=== PATIENT | male | born 1995 | race Hispanic/Latino ===

== ENCOUNTER 2019-12-29 12:38 | Emergency (ER) | payer BC, SELFPAY ==
[2019-12-29] MEDS ORDERED: Acetaminophen 500 MG TAB ONE (13:13)
--- NOTE | 2019-12-29 13:30 | RAD ---
Chest one view HISTORY: Cough and fever. FINDINGS: Cardiac silhouette is magnified by projection. Pulmonary vasculature is unremarkable. Media stinum is midline. No lobar consolidation or evidence of pneumothorax. IMPRESSION: Normal exam.
== END 2019-12-29 14:27 | disposition home or self-care (01) ==
LOC: ERS 12:38
DX: J11.1 Influenza due to unidentified influenza virus with other respiratory manifestations (principal); R11.0 Nausea; F41.9 Anxiety disorder, unspecified
CPT/HCPCS: 71045; 87081; 87430; 87804

== ENCOUNTER 2020-05-05 19:32 | Emergency (ER) | payer SELFPAY ==
[2020-05-05] MEDS ORDERED: Lidocaine 1% w/Epinephrine 1:100K 20 ML VIAL ONE (20:50)
== END 2020-05-05 21:17 | disposition home or self-care (01) ==
LOC: ERS 19:32
DX: L02.413 Cutaneous abscess of right upper limb (principal); F41.9 Anxiety disorder, unspecified
CPT/HCPCS: 10060; 87070; 87077; 87186; 87205

== ENCOUNTER 2020-09-17 20:37 | Inpatient (IN) | payer SELFPAY ==
[~2020-09-17 20:37] MED LIST: Iopamidol-370 76% 500 ML 1 ML ONE
--- NOTE | 2020-09-17 21:17 | RAD ---
SINGLE VIEW OF THE CHEST: 09/17/20 COMPARISON: 12/29/19 HISTORY: Subjective fever with chest pain. FINDINGS: Single view of the chest shows a normal sized cardiomediastinal silhouette. There is no evidence of c onsolidation, mass, or pleural effusion. The bones are unremarkable. IMPRESSION: No evidence of acute cardiopulmonary disease. POS: EAA
[2020-09-17] MEDS ORDERED: Midazolam HCl 2 mg/2 ml Vial ONE (21:21)
[2020-09-17] MEDS ORDERED: Piperacillin/Tazobactam 3.375 GM VIAL ONE (21:23)
[2020-09-17] MEDS ORDERED: Morphine 4 MG/ML VIAL ONE (21:23)
[2020-09-17 21:39] LABS: Hemoglobin 15.4 g/dL (14.0-18.0); Mean Corpuscular HGB CONC 32.7 g/dL (32.0-36.0); Mean Corpuscular Hemoglobin 29.8 pg (27.0-31.0); Mean Corpuscular Volume 91.1 fL (78.0-98.0); Platelet Count 310 thou/uL (130-400); RBC Distribution Width 11.5 % (11.5-14.5); Red Blood Cell (RBC) Count 5.18 mill/uL (4.70-6.10); White Blood Cell (WBC) Count 18.4 thou/uL (4.8-10.8)
[2020-09-17 21:58] LABS: Band 41 % (5-11); Lymphocytes 3 % (21-51); MDiff Complete? YES; Monocytes 2 % (0-10); Neutrophil 54 % (42-75); Reflex for Review?? YES
[2020-09-17 22:00] LABS: ALT (SGPT) 13 U/L (8-55); AST (SGOT) 10 U/L (5-34); Albumin 4.8 g/dL (3.5-5.0); Alkaline Phosphatase 73 U/L (40-110); Anion Gap 19 mmol/L (10-20); BUN (Urea Nitrogen) 25 mg/dL (8.9-20.6); Calc. Creatinine Clearance 0 mL/min (70-130); Calcium 10.6 mg/dL (7.8-10.44); Carbon Dioxide 24 mmol/L (22-29); Chloride 92 mmol/L (98-107); Globulin 3.6 g/dL (2.4-3.5); Glucose 172 mg/dL (70-105); Lipase Less than 4 U/L (8-78); Protein, Total 8.4 g/dL (6.0-8.3); Sodium 130 mmol/L (136-145)
[2020-09-17] MEDS ORDERED: Vancomycin 1 GM/200 ML BAG ONE (22:19)
[2020-09-17] MEDS ORDERED: Benzocaine 20% Spray 60 ML CAN ONE (23:44)
[2020-09-17] MEDS ORDERED: HYDROmorphone 0.5 MG/0.5 ML SYRINGE ONE (23:44)
[2020-09-18] MEDS ORDERED: Fentanyl 250 MCG/5 ML VIAL ONE (01:09)
[2020-09-18 01:16] LABS: Lactic Acid 2.3 mmol/L (0.5-2.2)
[2020-09-18] MEDS ORDERED: Bupivacaine 0.25% HCL 30 ML VIAL ONE (01:31)
[2020-09-18] MEDS ORDERED: EPINEPHrine 1 MG/ML AMP ONE (01:31)
--- NOTE | 2020-09-18 02:17 | HP ---
CHIEF COMPLAINT: Abdominal pain. HISTORY OF PRESENT ILLNESS: Mr. Sherman is a 25-year-old previously healthy young man, who presented to the emergency room with a 2-day history of abdominal pain. He states that the pain starts in his lower abdomen, a little worse on the left than the right, but slowly became more severe. At first, it was intermittent and crampy and now it is constant and involves his entire abdomen and even radiates up into his chest. On his presentation to the emergency room, he was extremely tachycardic and in acute distress and the emergency room doctor was concerned about aortic dissection. He did an aortic CT protocol which did not show any dissection, but did show multiple dilated loops of small intestine with a few foci of gas outside of the lumen of the dilated small intestine. The patient had an NG tube placed and was sent back to the CT scanner for a CT of the abdomen and pelvis as the lower part of the abdominal cavity was not included in the aortic dissection protocol. When I saw the patient, he had not yet had the NG placed to suction and I did so with immediate return of almost 1 L of bilious fluid. He stated that he had been drinking fluids, but had not really been eating for the past 2 days because when he is sick, he loses his appetite. He states that he has not had any nausea, vomiting, diarrhea, or constipation and has been having normal bowel movements throughout his illness. He has no significant past medical history. He recently came to the emergency room for an infected bite on his right arm and was treated for abscess and cellulitis. He has no history of GI issues. PAST SURGICAL HISTORY: None. SOCIAL HISTORY: The patient does not smoke, drink, or use illicit drugs. FAMILY HISTORY: Heart disease in his father, who had multiple MIs and of an MO. There is also family history of hypertension. ALLERGIES: HE HAS ADVERSE DRUG REACTIONS TO REGLAN AND SULFA. MEDICATIONS: Does not take any medications on a regular basis. He has received Zosyn and vancomycin in the emergency room. REVIEW OF SYSTEMS: 10-system review of systems is negative except per HPI. PHYSICAL EXAMINATION: VITAL SIGNS: The patient was still tachycardic when I saw him after 2 L of fluid with heart rate into the 120s. Respiratory rate was elevated earlier and was normal when I saw him. He was saturating 100% on room air and blood pressure was normal at 137/90. GENERAL: Reveals an ill-appearing young man, in no acute distress. He is slightly flushed, not toxic or diaphoretic in appearance. He is not jaundiced or icteric. He is normocephalic, atraumatic. Pupils are equal. Extraocular movements and facial movements are symmetric. HEENT: Unremarkable. NECK: Supple without lymphadenopathy or thyroid nodules. HEART: Tachycardic, but regular without murmurs, rubs, or gallops. LUNGS: Clear to auscultation bilaterally. ABDOMEN: Soft, slightly distended. No audible bowel sounds. Very tender to palpation in the lower abdomen and mildly tender to palpation in the upper abdomen with guarding in the lower abdomen. No palpable masses or hernias. EXTREMITIES: Warm and well perfused without edema. NEUROLOGIC: No focal deficits. PSYCHIATRIC: Alert, oriented, and appropriate with normal affect. There is no written report from the CT aortic protocol, but the ER physician pointed out the areas that the radiologist noted, which were concerning for free air. He did have multiple distended loops of small bowel, but I could not see a transition point and his cecum was also very distended with gas, but there was no obstruction in the transverse colon. I could not identify an appendix and the sigmoid colon was mostly excluded from the CT scan. The patient does have a written report for his CT of the abdomen and pelvis. They noted that the appendix was dilated up to 1.6 cm with an appendicolith, surrounding fat stranded and multiple dilated loops of small bowel, which was felt to be reactive or possibly due to obstruction related to the appendicitis. They noted ascites, but did not note free air. However, this scan was done without IV contrast. ASSESSMENT AND PLAN: Possible perforated appendicitis, possible bowel obstruction, and possible perforation related to the above. Hopefully, the foci of gas in the abdomen noted on the initial CT are from the appendix, but the patient definitely has peritonitis and either severe ileus or a possible bowel obstruction. The radiologist specifically commented that there was no evidence of diverticulitis or colitis in the sigmoid colon, although again the CT was done without contrast. I will plan on taking the patient to the operating room for a laparoscopic appendectomy, washout, and carefully examine the intestine for any evidence of secondary perforation or damage. If any nonviable or perforated segments of bowel are identified, he may require resection and even ostomy depending on the location. However, hopefully this is just perforated appendicitis with peritonitis and severe ileus. The patient's diagnosis and recommended treatment were discussed with him and his family member. Inherent risks of surgery were discussed. These include, but are not limited to, bleeding, infection, risks of anesthesia, anastomotic leak, need for open surgery, need for other procedures. He understands and accepts these risks and wishes to proceed. Job ID: [id number]
[2020-09-18 02:20] LABS: SARS-CoV-2 NAA Rapid Test Not Detected (NotDetected)
[2020-09-18] MEDS ORDERED: Piperacillin/Tazobactam 3.375 GM VIAL ONE (02:20)
[2020-09-18] MEDS ORDERED: Sodium Chloride 0.9% 100 ML ONE (02:22)
[2020-09-18] MEDS ORDERED: Morphine Sulfate 2 MG/ML SYRINGE SLOW IVP PRN (04:02)
[2020-09-18] MEDS ORDERED: Promethazine HCl 25 MG/ML VIAL SLOW IVP PRN (04:02)
[2020-09-18] MEDS ORDERED: HYDROmorphone 2 MG/ML VIAL SLOW IVP PRN (04:02)
[2020-09-18] MEDS ORDERED: Ondansetron HCl/PF 4 MG/2 ML Vial IVP PRN (04:02)
[2020-09-18] MEDS ORDERED: Meperidine HCl/PF 25 MG/ML VIAL SLOW IVP PRN (04:02)
[2020-09-18] MEDS ORDERED: Promethazine HCl 25 MG/ML VIAL IM PRN ×2 (04:02→04:58)
[2020-09-18] MEDS ORDERED: Acetaminophen 325 MG TAB PO PRN ×2 (04:55)
[2020-09-18] MEDS ORDERED: Dextrose 50% Abboject 50 ML SYRINGE SLOW IVP PRN (04:58)
[2020-09-18] MEDS ORDERED: Dextrose 5% in Water 1,000 ML IV PRN (04:58)
[2020-09-18] MEDS ORDERED: Acetaminophen 650 MG Suppository PR PRN (04:58)
[2020-09-18] MEDS ORDERED: hydrALAZINE 20 MG/ML VIAL SLOW IVP PRN (04:58)
[2020-09-18 06:27] VITALS: BMI 18.7
--- NOTE | 2020-09-18 07:57 | CT ---
CTA OF THE CHEST AND ABDOMEN WITH CONTRAST: HISTORY: Chest and abdominal pain for 2 days. Subjective fever. TECHNIQUE: Multiple continuous axial images were obtained in a CTA of the chest and abdomen with contrast per rtic dissection protocol. Three-D sagittal and coronal MIP reformats were performed. FINDINGS: No focal infiltrates or masses are seen in the lungs. No pneumothorax or pleural effusion are seen. The heart is normal in size. No hilar or mediastinal lymphadenopathy are seen. The esophagus is flu id-filled distally. The liver, gallbladder, kidneys, adrenal glands, spleen, and pancreas are unremarkable. The colon is filled with stool. There is diffuse enlargement of the small bowel loops measuring up t o 3.7 cm in size. There are a few bubbles of air scattered throughout the abdomen that cannot be dolly roney within the lumen of bowel and this is concerning for free air in the abdomen. There is a small a mount of free fluid also scattered throughout the abdomen. The stomach is enlarged. No obvious quiroga sition point is seen, but the pelvis is excluded on this examination. No abdominal or pelvic lymphadenopathy are seen. The aorta is normal in caliber. Subclavian arteries and common carotid arteries are normal in appear ance. There is no evidence of dissection or aneurysmal dilatation of the aorta. The celiac trunk, S MA, and NICKIE are patent. The bilateral renal arteries are patent without significant atherosclerotic disease. The abdominal wall soft tissues are unremarkable. There are bilateral L5 pars defects. IMPRESSION: 1. No significant aortic abnormality. 2. Diffuse enlargement of the small bowel loops with possible perforation of bowel given likely bubb les of free air in the abdomen. The cause for this diffuse enlargement of the small bowel loops is u ncertain and no obvious transition point is seen. This could be secondary to small bowel obstruction . POS: EAA
[2020-09-18] MEDS: Sodium Chloride 0.9% 1,000 ML IV SCH ×3 (08:15→17:52)
[2020-09-18] MEDS: Piperacillin/Tazobactam 3.375 GM in Sodium Chloride 0.9% 100 ML IVPB SCH ×3 (08:16→20:31)
[2020-09-18] MEDS: Famotidine 20 MG TAB PO SCH ×2 (08:17→21:29)
[2020-09-18] MEDS: Famotidine/PF 20 mg/2ml Vial SLOW IVP SCH ×2 (08:17→20:32)
--- NOTE | 2020-09-18 08:26 | CT ---
PRELIMINARY REPORT/[facility]/EMERGENCY AFTER HOURS PROCEDURE: Receipt of this report by the clinical staff was confirmed with Hipolito Wilder DO by Rubén tomas on Sep 18, 2020 00:59:00 DIRECT CHILL CASTING OPERATOR. Addendum electronically signed by Kristin tomas on September 18, 2020 1:00:13 AM DIRECT CHILL CASTING OPERATOR EXAM: CT Abdomen and Pelvis with Intravenous Contrast CLINICAL HISTORY: Worsening abdominal pain and chest pain. Patient has had 2 days of worsening abdomi nal pain with chest pain. Patient is a 25-year-old male who presents with worsening abdominal pain th at is now radiating into the chest. Patient's abdominal pain began in the right lower quadrant and ra diated up into the epigastrium is now radiating into his chest. TECHNIQUE: Axial computed tomography images of the abdomen and pelvis with intravenous contrast. CONTRAST: With; 75ML ISOVUE 370 COMPARISON: None provided. FINDINGS: LUNG BASES: Small right-sided pleural effusion. LIVER: Unremarkable. GALLBLADDER AND BILE DUCTS: Unremarkable. No calcified stone. No ductal dilation. PANCREAS: Unremarkable. SPLEEN: Unremarkable. ADRENAL GLANDS: Unremarkable. KIDNEYS, URETERS, AND BLADDER: Unremarkable. No hydronephrosis or nephrolithiasis. No ureteral or bladder calculi. STOMACH AND BOWEL: No obstruction. No wall thickening. No CT evidence of colitis or acute diverticulitis. APPENDIX: 7 mm appendicolith and the appendiceal lumen. The apex is dilated measuring up to 1.6 cm in diameter . There is surrounding fat stranding. There are multiple dilated loops of small bowel measuring up to 3.6 cm in diameter. PERITONEUM: Small volume ascites. No free air. LYMPH NODES: No lymphadenopathy. REPRODUCTIVE: Unremarkable as visualized. VASCULATURE: No aortic aneurysm. BONES: No fracture or suspicious osseous abnormality. Bilateral L5 pars defects with grade 1 anterolisthesi s of L5 on S1. ABDOMINAL WALL AND SOFT TISSUES: Unremarkable. IMPRESSION: Findings concerning for acute appendicitis with no evidence of perforation. Multiple dilated loops o f small bowel which may represent secondary small bowel obstruction. Small volume ascites. ELECTRONICALLY SIGNED BY: Mode Washington MD Sep 18, 2020 12:56:58 AM DIRECT CHILL CASTING OPERATOR This report is intended for review by the ordering physician only, in accordance of law. If you recei ve this report in error, please call [facility] at [phone]. FINAL REPORT CT ABDOMEN AND PELVIS WITH IV CONTRAST: Dilated fluid-filled loops of small bowel suggesting small bowel obstruction. Low-lying cecum in the deep pelvis. There is evidence of a dilated appendix with an appendicolith. Inflammatory process in t he right lower quadrant without evidence of abscess or fluid collection. Findings are concerning for appendicitis with possible secondary small bowel obstruction due to the inflammatory process. I am in agreement with the preliminary report issued by [facility]. POS: AGW
[2020-09-18 08:44] LABS: Hemoglobin 10.8 g/dL (14.0-18.0); Mean Corpuscular HGB CONC 34.7 g/dL (32.0-36.0); Mean Corpuscular Hemoglobin 31.6 pg (27.0-31.0); Mean Corpuscular Volume 91.1 fL (78.0-98.0); Mean Platelet Volume 6.9 fL (7.4-10.4); Platelet Count 207 thou/uL (130-400); RBC Distribution Width 11.4 % (11.5-14.5); Red Blood Cell (RBC) Count 3.42 mill/uL (4.70-6.10)
[2020-09-18 09:07] LABS: Anion Gap 12 mmol/L (10-20); BUN (Urea Nitrogen) 16 mg/dL (8.9-20.6); Calc. Creatinine Clearance 117 mL/min (70-130); Calcium 7.8 mg/dL (7.8-10.44); Carbon Dioxide 23 mmol/L (22-29); Chloride 104 mmol/L (98-107); Glucose 115 mg/dL (70-105); Potassium 4.4 mmol/L (3.5-5.1); Sodium 135 mmol/L (136-145)
[2020-09-18 09:29] LABS: Band 47 % (5-11); Lymphocytes 3 % (21-51); MDiff Complete? YES; Metamyelocyte 1 % (0-0); Monocytes 3 % (0-10); Neutrophil 46 % (42-75); Platelet Morphology Comment Appears Adequate; Polychromasia SLIGHT = 2-3 cells (100X) (0-2/hpf)
[2020-09-18] MEDS ORDERED: Ketorolac Tromethamine 30 MG/ML VIAL ONE (10:41)
[2020-09-18] MEDS ORDERED: PHENYLEPHRINE-NS 100 MCG/ML 10 ML SYRINGE ONE (10:41)
[2020-09-18] MEDS ORDERED: Lidocaine 1% PF 5 ML VIAL ONE (10:41)
[2020-09-18] MEDS ORDERED: diphenhydrAMINE 50 MG/ML VIAL ONE (10:41)
[2020-09-18] MEDS ORDERED: Succinylcholine 200 MG/10 ml SYRINGE FS ONE (10:41)
[2020-09-18] MEDS ORDERED: PROPOFOL 200 MG/20 ML VIAL ONE (10:41)
[2020-09-18] MEDS ORDERED: Ondansetron PF 4 MG/2 ML Vial ONE (10:41)
[2020-09-18] MEDS: Morphine 2 MG/ML VIAL SLOW IVP PRN (14:07)
[2020-09-18] MEDS: Morphine 4 MG/ML VIAL SLOW IVP PRN ×2 (17:49→23:00)
[2020-09-18] MEDS: Enoxaparin Sodium 40 MG/0.4 ML SYRINGE SC SCH (20:31)
--- NOTE | 2020-09-18 23:30 | OP ---
DATE OF PROCEDURE: 09/18/2020 PROCEDURE PERFORMED: Laparoscopic appendectomy and abdominal washout on 09/18/2020. PREOPERATIVE DIAGNOSIS: Appendicitis with free air. POSTOPERATIVE DIAGNOSES: Appendicitis with purulent peritonitis and bowel obstruction from adhesions. HISTORY OF PRESENT ILLNESS: Mr. Sherman is a 25-year-old male with 2-day history of severe lower abdominal pain becoming generalized and radiating up into his chest. He was found to have scattered foci of free air on a CT aortic dissection protocol, but the pelvis was not visualized. On repeat CT of abdomen and pelvis, he was found to have a very abnormal looking dilated appendix with stranding. He was noted on both films to have dilated small bowel loops. Recommendation was made to proceed to the operating room for laparoscopic appendectomy and washout and any other needed procedures. DESCRIPTION OF PROCEDURE: After informed consent was obtained and appropriate preoperative antibiotics were continued, the patient was taken to the operating room, where he was placed in supine position and general endotracheal anesthesia was administered. He was prepped and draped in a standard sterile fashion and local anesthesia infused through skin and subcutaneous tissues at the level of the umbilicus. A transverse skin incision was made and dissection carried down to the fascia which was incised. The peritoneum was entered under direct vision and a 5 mm port placed into the abdominal cavity. Carbon dioxide gas insufflated to an intraabdominal pressure of 15, which the patient tolerated well. The abdominal cavity was carefully examined. He was found to have purulent peritonitis with a large amount of pus in the abdomen consistent with perforated appendicitis or perforated viscus. Additional dissecting ports were placed under direct laparoscopic vision in the suprapubic and left lower quadrant locations and the interloop adhesions were carefully taken down. The patient was found to have obstruction near the level of the distal ileum due to these interloop adhesions and the terminal ileum was relatively normal and uninflamed in appearance, but the cecum was very inflamed and stuck down in the pelvis. Using meticulous dissection, this was able to be mobilized up out of the pelvis and a very abnormally dilated and inflamed appendix was identified, grasped, and mobilized out of the pelvis. This was found to be necrotic and perforated in the midportion of the appendix with a large abscess adjacent to it, which was suctioned out and sent for Gram stain and culture. The mesoappendix was sequentially ligated and divided down to the base of the appendix using the LigaSure device. The base of the appendix appeared normal and was clearly seen to be at the confluence of the tenia. Two endo-loops were placed on the base of the appendix. The appendix was divided between these endo-loops, placed into an EndoCatch bag and drawn out through the suprapubic trocar. The suprapubic trocar was then replaced and the small bowel carefully run from the ileocecal valve to the ligament of Treitz taking down all the interloop adhesions as they were encountered. The proximal bowel was very dilated consistent with obstruction, but there was no evidence of perforation. The colon looked grossly normal except for the very inflamed cecum. The entire abdominal cavity was copiously irrigated with 12 L of warm saline until all of the return was clear. A JASON drain was placed through the suprapubic trocar and drawn out through the left lower quadrant trocar. This was secured to the skin with skin suture and the JASON was placed down into the pelvis with the end in the right pericolic gutter. The suprapubic trocar was then removed and the fascia closed under direct vision using 0 Vicryl suture on a GraNee needle with excellent technical result. Carbon dioxide gas was allowed to desufflate through the umbilical trocar, which was then removed. The fascia was closed under direct vision with a 0 Vicryl suture on a UR6 needle under direct vision with excellent technical result. The umbilical and suprapubic incisions were copiously irrigated with clean saline and the skin closed with subcuticular 4-0 Monocryl sutures. Dermabond dressings were placed and the JASON exit site was dressed with gauze and Tegaderm. The patient was extubated and taken to Recovery in good condition. Estimated blood loss was minimal. There were no complications. SPECIMENS: Peritoneal fluid for Gram stain and culture and appendix. Job ID: [id number]
[2020-09-19] MEDS: Piperacillin/Tazobactam 3.375 GM in Sodium Chloride 0.9% 100 ML IVPB SCH ×4 (01:13→19:57)
[2020-09-19] MEDS: Sodium Chloride 0.9% 1,000 ML IV SCH ×4 (01:13→18:42)
[2020-09-19] MEDS: Morphine 4 MG/ML VIAL SLOW IVP PRN ×3 (05:28→19:56)
[2020-09-19 06:05] LABS: #Lymphocytes 0.9 thou/uL (1.20-3.40); #Monocytes 0.5 thou/uL (0.11-0.59); #Neutrophils 8.2 thou/uL (1.40-6.50); %Basophils 0.2 % (0.0-1.0); %Eosinophils 0.2 % (0.0-10.0); %Lymphocytes 9.6 % (21.0-51.0); %Monocytes 5.3 % (0.0-10.0); Hemoglobin 10.9 g/dL (14.0-18.0); Mean Corpuscular HGB CONC 31.9 g/dL (32.0-36.0); Mean Corpuscular Hemoglobin 31.1 pg (27.0-31.0); Mean Corpuscular Volume 97.4 fL (78.0-98.0); Mean Platelet Volume 6.9 fL (7.4-10.4); Platelet Count 215 thou/uL (130-400); RBC Distribution Width 11.5 % (11.5-14.5); Red Blood Cell (RBC) Count 3.52 mill/uL (4.70-6.10); White Blood Cell (WBC) Count 9.8 thou/uL (4.8-10.8)
[2020-09-19 06:09] LABS: Anion Gap 15 mmol/L (10-20); BUN (Urea Nitrogen) 13 mg/dL (8.9-20.6); Calc. Creatinine Clearance 121 mL/min (70-130); Calcium 8.2 mg/dL (7.8-10.44); Carbon Dioxide 18 mmol/L (22-29); Chloride 108 mmol/L (98-107); Glucose 79 mg/dL (70-105); Potassium 4.5 mmol/L (3.5-5.1); Sodium 136 mmol/L (136-145)
[2020-09-19] MEDS: Famotidine 20 MG TAB PO SCH ×2 (09:12→20:08)
[2020-09-19] MEDS: Famotidine/PF 20 mg/2ml Vial SLOW IVP SCH ×2 (09:15→19:57)
--- NOTE | 2020-09-19 11:27 | EKG ---
Test Reason : Blood Pressure : / mmHG Vent. Rate : 125 BPM Atrial Rate : 125 BPM P-R Int : 124 ms QRS Dur : 080 ms QT Int : 286 ms P-R-T Axes : 052 076 056 degrees QTc Int : 412 ms Sinus tachycardia Otherwise normal ECG Confirmed by RONALD AMOR ([id number]), sound editor TODD WANG ([id number]) on 09/19/2020 11:26:56 AM Referred By: Confirmed By:RONALD AMOR
--- NOTE | 2020-09-19 14:54 | PRG ---
DATE OF SERVICE: 09/19/2020 SUBJECTIVE: The patient is feeling much better. Pain is minimal. No nausea or vomiting. OBJECTIVE: VITAL SIGNS: His temperature is 98.7, pulse 98, blood pressure 127/80. GENERAL: He looks good. NG output is only 100, drain output is 200. It is growing gram-negative lukasz. LABORATORY DATA: His white count is down to 9.8, H and H of 10 and 34, platelet count 215. Electrolytes are okay. ASSESSMENT: Doing well. PLAN: Discontinue NG. Clear liquid diet. Job ID: [id number]
[2020-09-19] MEDS: Enoxaparin Sodium 40 MG/0.4 ML SYRINGE SC SCH (19:57)
[2020-09-20] MEDS: Morphine 4 MG/ML VIAL SLOW IVP PRN ×3 (00:49→20:30)
[2020-09-20] MEDS: Sodium Chloride 0.9% 1,000 ML IV SCH ×3 (02:08→05:49)
[2020-09-20] MEDS: Piperacillin/Tazobactam 3.375 GM in Sodium Chloride 0.9% 100 ML IVPB SCH ×4 (02:09→20:20)
[2020-09-20] MEDS: Famotidine/PF 20 mg/2ml Vial SLOW IVP SCH ×2 (09:19→20:20)
[2020-09-20] MEDS: D5 1/2 NS w/20 mEq KCL 1,000 ML IV SCH ×2 (10:38→20:21)
[2020-09-20] MEDS: Famotidine 20 MG TAB PO SCH ×2 (10:47→20:21)
[2020-09-20] MEDS ORDERED: Bisacodyl 10 MG SUPP PR PRN (11:42)
--- NOTE | 2020-09-20 12:13 | PRG ---
DATE OF SERVICE: 09/20/2020 SUBJECTIVE: The patient is still well. He passed a little bit of gas out his bottom. He has had some nausea. No vomiting. OBJECTIVE: VITAL SIGNS: His temperature is 98.6, pulse 86, blood pressure 113/76. ABDOMEN: Pretty distended, minimal tenderness. No peritoneal signs. Rare bowel sounds. LABORATORY DATA: His white count is 9.8, H and H are 10 and 34, platelet count 215. ASSESSMENT: Ileus. PLAN: Dulcolax suppository. KUB. Continue n.p.o. until he starts passing more out his bottom. Job ID: [id number]
--- NOTE | 2020-09-20 18:33 | RAD ---
Exam: 1 view abdomen HISTORY: Postoperative ileus. FINDINGS: There appears to be a drainage catheter projecting over the pelvis. There are air-filled loops of sma ll bowel in the left hemiabdomen. There is scattered fecal material in a decompressed colon. Findings may represent a resolving ileus versus a partial bowel obstruction. Continued surveillance i s recommended. IMPRESSION: Resolving ileus versus partial bowel obstruction. Continued surveillance is recommended.
[2020-09-20] MEDS: Enoxaparin Sodium 40 MG/0.4 ML SYRINGE SC SCH (20:20)
[2020-09-21] MEDS: Piperacillin/Tazobactam 3.375 GM in Sodium Chloride 0.9% 100 ML IVPB SCH ×4 (01:33→21:02)
[2020-09-21] MEDS: D5 1/2 NS w/20 mEq KCL 1,000 ML IV SCH ×4 (01:34→21:02)
[2020-09-21] MEDS: Morphine 4 MG/ML VIAL SLOW IVP PRN (04:24)
[2020-09-21] MEDS: Famotidine/PF 20 mg/2ml Vial SLOW IVP SCH ×2 (08:23→21:02)
[2020-09-21] MEDS: Famotidine 20 MG TAB PO SCH ×2 (08:25→21:02)
--- NOTE | 2020-09-21 10:37 | RAD ---
ABDOMEN 1 VIEW: HISTORY: Ileus versus partial small bowel obstruction. COMPARISON: 09/20/2020. FINDINGS: Persistent abnormally dilated small bowel loops which appear somewhat more distended than on 0. Stable-appearing drainage catheter in the region of the pelvis. IMPRESSION: Persistent abnormally dilated small bowel loops, possibly slightly more distended/stable from prior s tudy. No significant new process. POS: RRE
--- NOTE | 2020-09-21 11:21 | PDOC.GSPN ---
Surgery Progress Note: Subj - Subjective Narrative: Patient is feeling a little better. He has passed more gas today. He denies nausea. His abdominal pain has improved. Abdomen is still distended but not as tight as before. He has fairly copious serous drainage from his JASON. He is afebrile and his white count is normal. Assessment/plan: Status post perforated appendicitis with small bowel obstruction from adhesions from his purulent peritonitis. Adhesions were taken down intraoperatively but he still has dilated small bowel loops on abdominal films 2 days ago worrisome for persistent obstruction or ileus. He is passing more gas but still distended. I ordered repeat KUB and unfortunately the small bowel loops look a little more distended although he has a fair amount of gas in his colon as well. I have ordered the NG tube to be replaced. I am going to put him on PPN. Surgery Progress Note: Obj - Vital signs Vital signs: Vital Signs - Most Recent Temp Pulse Resp BP Pulse Ox 98.5 F 84 16 127/78 98 09/21/20 07:35 09/21/20 07:35 09/21/20 07:35 09/21/20 07:35 09/21/20 07:35 Surgery Progress Note: Results - Labs Result Diagrams: 09/19/20 05:20 09/19/20 05:20
--- NOTE | 2020-09-21 14:06 | RAD ---
KUB INDICATION: Check NG tube placement COMPARISON: Prior exam dated September 21, 2020 10:15 AM FINDINGS: Bowel gas: Dilated gas-filled loops of small bowel within the central abdomen are stable. There is a new gastric catheter in the region of the gastric body. Lung bases: Not included in the [id number] Additional findings: Surgical drain within the pelvis is stable. Osseous structures: No acute osseous abnormality is demonstrated. IMPRESSION: 1. New gastric catheter tip in the region of the gastric body. Otherwise stable exam
[2020-09-21] MEDS: Enoxaparin Sodium 40 MG/0.4 ML SYRINGE SC SCH (21:02)
[2020-09-22] MEDS: Piperacillin/Tazobactam 3.375 GM in Sodium Chloride 0.9% 100 ML IVPB SCH ×4 (01:32→20:46)
[2020-09-22] MEDS: D5W-AA 4.25% with LYTES 1,000 ML IV SCH ×2 (01:33→23:36)
[2020-09-22] MEDS: D5 1/2 NS w/20 mEq KCL 1,000 ML IV SCH (01:34)
[2020-09-22] MEDS: Famotidine/PF 20 mg/2ml Vial SLOW IVP SCH ×2 (08:22→20:46)
[2020-09-22] MEDS: Famotidine 20 MG TAB PO SCH ×2 (08:23→20:47)
[2020-09-22 09:32] LABS: #Eosinphils 0.1 thou/uL (0.0-0.7); #Lymphocytes 0.7 thou/uL (1.20-3.40); #Monocytes 0.6 thou/uL (0.11-0.59); #Neutrophils 3.8 thou/uL (1.40-6.50); %Basophils 0.6 % (0.0-1.0); %Eosinophils 1.4 % (0.0-10.0); %Lymphocytes 12.8 % (21.0-51.0); %Monocytes 12.4 % (0.0-10.0); %Neutrophils 72.9 % (42.0-75.0); Hemoglobin 11.3 g/dL (14.0-18.0); Mean Corpuscular HGB CONC 32.8 g/dL (32.0-36.0); Mean Corpuscular Hemoglobin 31.1 pg (27.0-31.0); Mean Corpuscular Volume 94.5 fL (78.0-98.0); Mean Platelet Volume 6.2 fL (7.4-10.4); Platelet Count 358 thou/uL (130-400); RBC Distribution Width 11.7 % (11.5-14.5); Red Blood Cell (RBC) Count 3.64 mill/uL (4.70-6.10); White Blood Cell (WBC) Count 5.2 thou/uL (4.8-10.8)
[2020-09-22 09:47] LABS: ALT (SGPT) 13 U/L (8-55); AST (SGOT) 14 U/L (5-34); Albumin 3.1 g/dL (3.5-5.0); Alkaline Phosphatase 50 U/L (40-110); Anion Gap 12 mmol/L (10-20); BUN (Urea Nitrogen) 9 mg/dL (8.9-20.6); Bilirubin, Total 0.7 mg/dL (0.2-1.2); Calc. Creatinine Clearance 132 mL/min (70-130); Calcium 8.2 mg/dL (7.8-10.44); Carbon Dioxide 28 mmol/L (22-29); Chloride 100 mmol/L (98-107); Globulin 2.4 g/dL (2.4-3.5); Glucose 100 mg/dL (70-105); Potassium 3.4 mmol/L (3.5-5.1); Protein, Total 5.5 g/dL (6.0-8.3); Sodium 137 mmol/L (136-145)
[2020-09-22] MEDS ORDERED: Potassium Chloride 40 MEQ in Sodium Chloride 0.9% 250 ML 250 ML IVPB SCH (10:30)
[2020-09-22 12:11] LABS: Magnesium 2.1 mg/dL (1.6-2.6); Phosphorus 3.6 mg/dL (2.3-4.7)
--- NOTE | 2020-09-22 14:55 | PDOC.GSPN ---
Surgery Progress Note: Subj - Subjective Narrative: Patient feels much better since placement of the NG tube. He states that he is passing more gas and his abdomen is softer and he is hungry. He had over a liter from the NG yesterday and it was dark bilious in color. The canister was recently changed in the output since the canister was changed is customer service leader in color. Abdomen is still slightly distended but softer and nontender. JASON output is still clear. Assessment/plan: Partial small bowel obstruction versus ileus. I recommended a CT scan today to try to distinguish between the 2. The radiologist report is still pending but it looks to me like there is a transition point in the pelvis with a very decompressed terminal ileum. I am going to keep him n.p.o. with the NG to intermittent low wall suction. I have ordered repeat abdominal x-rays for tomorrow. If he has not shown significant improvement then I will consider taking him back to the operating room for laparoscopic lysis of adhesions. Surgery Progress Note: Obj - Vital signs Vital signs: Vital Signs - Most Recent Temp Pulse Resp BP Pulse Ox 98.2 F 88 16 123/82 99 09/22/20 11:15 09/22/20 11:15 09/22/20 11:15 09/22/20 11:15 09/22/20 11:15 Surgery Progress Note: Results - Labs Result Diagrams: 09/22/20 09:14 09/22/20 09:13 Lab results: Laboratory Results - last 12 hr 09/22/20 09/22/20 09/22/20 09:00 09:13 09:14 WBC 5.2 RBC 3.64 L Hgb 11.3 L Hct 34.4 L MCV 94.5 MCH 31.1 H MCHC 32.8 RDW 11.7 Plt Count 358 MPV 6.2 L Neutrophils % 72.9 Lymphocytes % 12.8 L Monocytes % 12.4 H Eosinophils % 1.4 Basophils % 0.6 Neutrophils # 3.8 Lymphocytes # 0.7 L Monocytes # 0.6 H Eosinophils # 0.1 Basophils # 0.0 Sodium 137 Potassium 3.4 L Chloride 100 Carbon Dioxide 28 Anion Gap 12 BUN 9 Creatinine 0.67 L Estimated GFR (MDRD) Greater than 90 Glucose 100 Calcium 8.2 Phosphorus 3.6 Magnesium 2.1 Total Bilirubin 0.7 AST 14 ALT 13 Alkaline Phosphatase 50 Serum Total Protein 5.5 L Albumin 3.1 L Globulin 2.4 Albumin/Globulin Ratio 1.3
--- NOTE | 2020-09-22 15:29 | CT ---
CT ABDOMEN AND PELVIS WITHOUT IV CONTRAST: 09/22/20 INDICATIONS: Small bowel obstruction versus ileus. Post appendectomy with purulent peritonitis. FINDINGS: Images through the lung bases shows small right pleural effusion. Liver, spleen, pancreas unremarkable. Kidneys unremarkable. NG tube has tip at the level of the gastr ic antrum. There are numerous fluid filled dilated loops of small bowel. The terminal ileum appears decompressed . There is a low lying cecum in the right pelvis; however, there appears to be a decompressed termina l ileum best seen on coronal imaging. This would indicate a high grade distal small bowel obstruction . IMPRESSION: Severely dilated fluid filled loops of small bowel. There appears to be a decompressed terminal ileum on coronal images, although the bowel is suboptimally delineated due to lack of contrast. Findings w ould indicate a high grade distal small bowel obstruction. POS: AGW
[2020-09-22] MEDS: Morphine 2 MG/ML VIAL SLOW IVP PRN (19:10)
[2020-09-22] MEDS: Enoxaparin Sodium 40 MG/0.4 ML SYRINGE SC SCH (20:47)
[2020-09-23] MEDS: D5 1/2 NS w/20 mEq KCL 1,000 ML IV SCH (00:52)
[2020-09-23] MEDS: Piperacillin/Tazobactam 3.375 GM in Sodium Chloride 0.9% 100 ML IVPB SCH ×4 (01:09→20:32)
[2020-09-23 06:37] LABS: Anion Gap 9 mmol/L (10-20); BUN (Urea Nitrogen) 11 mg/dL (8.9-20.6); Calc. Creatinine Clearance 128 mL/min (70-130); Calcium 8.2 mg/dL (7.8-10.44); Carbon Dioxide 26 mmol/L (22-29); Chloride 101 mmol/L (98-107); Glucose 110 mg/dL (70-105); Sodium 132 mmol/L (136-145)
[2020-09-23] MEDS: Famotidine 20 MG TAB PO SCH ×2 (08:10→20:32)
[2020-09-23] MEDS: Famotidine/PF 20 mg/2ml Vial SLOW IVP SCH ×2 (08:10→20:32)
--- NOTE | 2020-09-23 10:12 | PDOC.GSPN ---
Surgery Progress Note: Subj - Subjective Narrative: Patient states that he "feels like a new man" this morning. He states that he had multiple bowel movements and is feeling much better. He is not nauseated. He is hungry. He states that his stomach has gone down to its normal size. The radiologist agreed with me that the patient likely has a bowel obstruction at the level of the terminal ileum on his CT yesterday. X-ray this morning showed a persistently dilated loop of small intestine but less extensive than yesterday. He has a lot of gas in his colon as well. NG output yesterday was almost a liter, but it has significantly slowed down since last night although it is still light green in color. Abdomen is soft nondistended nontender and the incisions look good. There is minimal serous drainage from the JASON. Assessment/plan: Status post laparoscopic appendectomy with extensive washout for perforated appendicitis with purulent peritonitis and small bowel obstruction due to infectious adhesions. On CT yesterday he appeared to have persistent small bowel obstruction but symptomatically he is much improved. His KUB still shows dilated loop of intestine but less than before and his NG output has gone down. The patient wants to eat but I am concerned that he could have an element of persistent obstruction. After discussion with him regarding his options we decided to proceed with a Gastrografin small bowel follow-through today. If this is normal then we will remove the NG and start him on a liquid diet. If it is abnormal he may require repeat surgery. Surgery Progress Note: Obj - Vital signs Vital signs: Vital Signs - Most Recent Temp Pulse Resp BP Pulse Ox 97.7 F 79 15 126/80 100 09/23/20 08:10 09/23/20 08:10 09/23/20 08:10 09/23/20 08:10 09/23/20 08:10 Surgery Progress Note: Results - Labs Result Diagrams: 09/22/20 09:14 09/23/20 05:56 Lab results: Laboratory Results - last 12 hr 09/23/20 05:56 Sodium 132 L Potassium 4.0 Chloride 101 Carbon Dioxide 26 Anion Gap 9 L BUN 11 Creatinine 0.69 L Estimated GFR (MDRD) Greater than 90 Glucose 110 H Calcium 8.2
--- NOTE | 2020-09-23 10:58 | RAD ---
KUB: Date: 09/23/2020 HISTORY: Ileus vs. small bowel obstruction. COMPARISON: 09/21/2020 exam. FINDINGS: NG tube remains in the stomach. Dilated small bowel loops appear somewhat improved as compared to the prior exam. There is still air present within the colon. Catheter is again noted within the pelvis. IMPRESSION: Slight decrease in the small bowel distention as compared to the prior exam. Otherwise relatively sta ble study. POS: TREVER
[2020-09-23] MEDS: Morphine 2 MG/ML VIAL SLOW IVP PRN (13:32)
--- NOTE | 2020-09-23 18:04 | PDOC.GSPN ---
Surgery Progress Note: Subj - Subjective Narrative: No contrast in colon until 4 hrs small bowel still dilated. Recommended laparoscopic MARISABEL for persistent PSBO but pt refused. NG back to ILWS. Repeat KUB in AM. Surgery Progress Note: Obj - Vital signs Vital signs: Vital Signs - Most Recent Temp Pulse Resp BP Pulse Ox 98.3 F 74 15 122/81 100 09/23/20 11:00 09/23/20 11:00 09/23/20 11:00 09/23/20 11:00 09/23/20 11:00 Surgery Progress Note: Results - Labs Result Diagrams: 09/22/20 09:14 09/23/20 05:56 Lab results: Laboratory Results - last 12 hr 09/23/20 05:56 Sodium 132 L Potassium 4.0 Chloride 101 Carbon Dioxide 26 Anion Gap 9 L BUN 11 Creatinine 0.69 L Estimated GFR (MDRD) Greater than 90 Glucose 110 H Calcium 8.2
--- NOTE | 2020-09-23 18:53 | RAD ---
Small bowel follow-through HISTORY: Abdominal pain. Bowel obstruction. FINDINGS: Early images show nasogastric tube in the stomach and oral contrast material within the sto mach and mildly distended proximal to mid small bowel. At 4 hours, contrast is evident within the colon, confirmed on the 5 hour image, where the small bowel is less dilated. IMPRESSION : No evidence of ongoing high-grade small bowel obstruction. Liquid contrast reaches the colon at 4 margarette rs. Bowel distention is less severe than on earlier exams.
[2020-09-23] MEDS: Enoxaparin Sodium 40 MG/0.4 ML SYRINGE SC SCH (20:32)
[2020-09-23] MEDS: D5W-AA 4.25% with LYTES 1,000 ML IV SCH (21:37)
[2020-09-24] MEDS: D5 1/2 NS w/20 mEq KCL 1,000 ML IV SCH (02:30)
[2020-09-24] MEDS: Piperacillin/Tazobactam 3.375 GM in Sodium Chloride 0.9% 100 ML IVPB SCH ×4 (02:33→20:43)
[2020-09-24] MEDS: Famotidine 20 MG TAB PO SCH ×2 (08:20→20:44)
[2020-09-24] MEDS: Famotidine/PF 20 mg/2ml Vial SLOW IVP SCH (08:20)
--- NOTE | 2020-09-24 09:41 | RAD ---
KUB: COMPARISON: Small bowel follow through 09/23/2020 and KUB 09/23/2020. HISTORY: Small bowel obstruction versus gliosis. FINDINGS: A single view of the abdomen shows an NG tube in the stomach. An Air-filled loop of small bowel estefanía uring 6.1 cm in size is seen in the left abdomen. Contrast has passed through the small bowel to the colon and is seen throughout the colon to the level of the rectum. A drain is seen in the pelvis. IMPRESSION: The contrast passed through the small bowel into the colon from the small bowel follow-through. The findings of the dilated small bowel may be secondary to ileus or partial small bowel obstruction. POS: EAA
--- NOTE | 2020-09-24 15:32 | PDOC.GSPN ---
Surgery Progress Note: Subj - Subjective Narrative: Discussed the situation with the patient. I feel that he has a persistent partial small bowel obstruction that will become symptomatic if we try to feed him. However the patient continues to refuse surgery. His NG tube was removed and he was started on clear liquid diet. If he becomes nauseated and bloated as anticipated he states that he will consider surgery. Surgery Progress Note: Obj - Vital signs Vital signs: Vital Signs - Most Recent Temp Pulse Resp BP Pulse Ox 98.4 F 76 16 118/76 99 09/24/20 12:25 09/24/20 12:25 09/24/20 12:25 09/24/20 12:25 09/24/20 12:25 Surgery Progress Note: Results - Labs Result Diagrams: 09/22/20 09:14 09/23/20 05:56
[2020-09-24] MEDS: D5W-AA 4.25% with LYTES 1,000 ML IV SCH (15:44)
[2020-09-24] MEDS: Enoxaparin Sodium 40 MG/0.4 ML SYRINGE SC SCH (20:43)
[2020-09-25] MEDS: Famotidine/PF 20 mg/2ml Vial SLOW IVP SCH ×2 (01:24→08:19)
[2020-09-25] MEDS: Piperacillin/Tazobactam 3.375 GM in Sodium Chloride 0.9% 100 ML IVPB SCH ×3 (01:25→13:14)
[2020-09-25] MEDS: D5 1/2 NS w/20 mEq KCL 1,000 ML IV SCH (02:16)
[2020-09-25] MEDS: Famotidine 20 MG TAB PO SCH (08:30)
[2020-09-25] MEDS: D5W-AA 4.25% with LYTES 1,000 ML IV SCH (09:11)
[2020-09-25 15:56] VITALS: BP 100/60; TEMP 98.7
--- NOTE | 2020-09-28 14:42 | DIS ---
DATE OF ADMISSION: 09/18/2020 DATE OF DISCHARGE: 09/25/2020 FINAL DIAGNOSES: Perforated appendicitis with peritonitis and partial small bowel obstruction. PROCEDURES: Laparoscopic appendectomy, washout and lysis of adhesions on 09/18/2020. HISTORY OF PRESENT ILLNESS: Mr. Sherman is a 25-year-old man, who presented to the emergency room with a several-day history of severe lower abdominal pain. He was found to have perforated appendicitis and resulting small bowel obstruction. He underwent a laparoscopic appendectomy, washout and lysis of adhesions, but postoperatively, did not tolerate advancement of diet. He was made n.p.o., but continued to be bloated, although he was passing gas. An NG tube was placed with improvement in his abdominal distention, but a CT scan showed a persistent change in caliber in the distal ileum consistent with a partial bowel obstruction. Recommendation was made to proceed back to the operating room for repeat lysis of adhesions, but the patient refused. Small bowel follow-through was performed the following day, which showed very delayed contrast through the small intestine to the colon at about 4 hours. This again was felt to represent a persistent partial obstruction, but the patient did not want to proceed with surgery. So, the NG tube was discontinued and he was started on a liquid diet. He tolerated clear liquids and then full liquids and was discharged home with instructions to return if he develops recurrent nausea, vomiting, or bloating. No discharge medications. He was instructed to avoid heavy lifting for another week and to return to the [facility] in a week or 2. Job ID: [id number]
--- NOTE | 2020-09-29 23:41 | PQF ---
CLINICAL DOCUMENTATION CLARIFICATION FORM: Dear : Awilda Alberts MD Date / Time: 09/29/2020 Please exercise your independent, professional judgment in responding to the clarification form. Clinical indicators are provided on the bottom of this form for your review Please check appropriate box(es): [ ] Sepsis due to: [ ] Severe sepsis with associated acute organ dysfunction: [ ] Acute Respiratory Failure [ ] Acute Kidney injury w/o ATN [ ] Acute Kidney Injury w ATN [ ] Encephalopathy (metabolic) (septic) [ ] Disseminated Intravascular Coagulopathy (DIC) [ ] Hepatic Failure [ ] Additional/Other: please specify: [ ] Septic Shock [ ] Localized infection without sepsis [ ] SIRS due to non-infectious process (please specify etiology) [ ] with organ dysfunction [ ] without organ dysfunction [ ] Other diagnosis (Please specify if any) [ ] Unable to determine Physician Signature: Date/Time: For continuity of documentation, please document condition throughout progress notes and discharge summary. Thank You. To be completed by CDI/Coding staff for physician review: Present Clinical Indicators - Signs / Symptoms / Labs Results and Location in Medical Record [x] Diagnosis: primary: sepsis Emergency room visit on 09/18 [x] Fever or hypothermia (<96.8 F/36 C or > 100.4 F/38C) Fever - Emergency room visit on 09/18 [ ] Respiratory rate >20/min, hypoxemia, and or hypercapnia [x] Heart Rate/Tachycardia (>90 bpm), SBP<100mmHg Tachycardia-Emergency room visit on 09/18 [ ] Acute organ dysfunction/failure [x] Metabolic acidosis Lactic Acid >2mmol/L OR 36mg/dL, Lactic acid 4.5 H Laboratory on 09/17 [x] Oliguria , increase BUN/Cr, decreased GFR, elevated liver enzymes Cr-.1.37 Laboratory on 09/17 [ ] Coag abnormalities, thrombocytopenia plts <100k [ ] Shock-hypotension resistant to IV fluid boluses [x] WBC count (>12,000/mm^4 or <4000/mm^3 or 70% neuts, 10% bands) WBC-18.4 Laboratory on 09/17 [ ] Hyperglycemia in absence of diabetes mellitus [ ] Positive blood cultures Present Risk Factors Results and Location in Medical Record [ ] Infection/Bacteremia [ ] Pneumonia, UTI, infected wound, gangrenous gall bladder Diabetes or Cancer [x] Perforated appendicitis OP note on 09/18 [ ] Immunosuppression [ ] Advancing Age Present Treatments Results and Location in Medical Record [x] Sepsis activation at [age] Emergency room visit on 09/18 [ ] Daily CBC, blood/sputum/wound cx [ ] ID Consult [ x ] Vancomycin 1gm IV Medication on 09/17 [ ] IV ?uids [ ] Vasopressors, meds [ ] Consultants; ID, GI, Pulmonary, Hematology CDS/Case Therapist Signature: BEST Phone #: Date/Time: 09/29/2020 This is a permanent part of the Medical Record [facility]
== END 2020-09-25 18:48 | disposition home or self-care (01) | DRG 339 ==
LOC: ERS 20:37 → SDC/OP 09-18 01:42 → SURG A 09-18 05:46
PROVIDERS: ADMIT Surgery; ATTEND Surgery
PROC: 0DTJ4ZZ Resection of Appendix, Percutaneous Endoscopic Approach (ICD-10-PCS; principal; 2020-09-18)
PROC: 0D9670Z Drainage of Stomach with Drainage Device, Via Natural or Artificial Opening (ICD-10-PCS; 2020-09-18)
DX: K35.33 Acute appendicitis with perforation, localized peritonitis, and gangrene, with abscess (principal); K56.7 Ileus, unspecified; K56.50 Intestinal adhesions [bands], unspecified as to partial versus complete obstruction; F41.9 Anxiety disorder, unspecified; Z20.828 Contact with and (suspected) exposure to other viral communicable diseases; I10 Essential (primary) hypertension; Z88.2 Allergy status to sulfonamides; Z88.8 Allergy status to other drugs, medicaments and biological substances
CPT/HCPCS: 36415; 71045; 71275; 74018; 74174; 74176; 74177; 74250; 80048; 80053; 83605; 83690; 83735; 84100; 84484; 85025; 85060; 85379; 87040; 87070; 87077; 87186; 87205; 88304; 93005; 96365; 96366; 96367; 96375; J0171; J1170; J1200; J1650; J1885; J2250; J2270; J2405; J2543; J2550; J2704; J3010; J3370; J3480; J3490; J7050; Q9967; S0020; S0028; U0002

== ENCOUNTER 2022-11-08 17:04 | Emergency (ER) | payer SELFPAY | END 2022-11-08 18:37 | disposition left against medical advice (07) | LOC: ERS 17:04 | DX: Z53.21 Procedure and treatment not carried out due to patient leaving prior to being seen by health care provider (principal) ==

== ENCOUNTER 2022-11-09 12:28 | Emergency (ER) | payer SELFPAY ==
[2022-11-09 13:09] LABS: #Eosinphils 0.1 thou/uL (0.0-0.7); #Lymphocytes 2.4 thou/uL (1.20-3.40); #Monocytes 0.3 thou/uL (0.11-0.59); #Neutrophils 4.6 thou/uL (1.40-6.50); %Basophils 0.6 % (0.0-1.0); %Eosinophils 0.9 % (0.0-10.0); %Lymphocytes 32.4 % (21.0-51.0); %Monocytes 4.4 % (0.0-10.0); %Neutrophils 61.7 % (42.0-75.0); Hemoglobin 15.6 g/dL (14.0-18.0); Mean Corpuscular HGB CONC 33.4 g/dL (32.0-36.0); Mean Corpuscular Hemoglobin 31.1 pg (27.0-31.0); Mean Corpuscular Volume 93.1 fl (78.0-98.0); Platelet Count 355 10x3/uL (130-400); Red Blood Cell (RBC) Count 5.01 mill/uL (4.70-6.10); White Blood Cell (WBC) Count 7.4 10x3/uL (4.8-10.8)
[2022-11-09 13:40] LABS: ALT (SGPT) 27 U/L (8-55); AST (SGOT) 20 U/L (5-34); Albumin 5.1 g/dL (3.5-5.0); Alkaline Phosphatase 93 U/L (40-110); Anion Gap 16 mmol/L (10-20); BUN (Urea Nitrogen) 23 mg/dL (8.9-20.6); Bilirubin, Total 1.7 mg/dL (0.2-1.2); Calc. Creatinine Clearance 0 mL/min (70-130); Calcium 10.3 mg/dL (7.8-10.44); Carbon Dioxide 24 mmol/L (22-29); Chloride 101 mmol/L (98-107); Estimated GFR 94; Globulin 3.3 g/dL (2.4-3.5); Glucose 155 mg/dL (70-105); Lipase 8 U/L (8-78); Protein, Total 8.4 g/dL (6.0-8.3); Sodium 137 mmol/L (136-145)
== END 2022-11-09 14:47 | disposition home or self-care (01) ==
LOC: ERS 12:28
DX: R10.813 Right lower quadrant abdominal tenderness (principal); R11.0 Nausea; F17.290 Nicotine dependence, other tobacco product, uncomplicated
CPT/HCPCS: 36415; 80053; 83690; 85025; 99284

== ENCOUNTER 2022-11-10 08:39 | Emergency (ER) | payer SELFPAY ==
[2022-11-10 09:37] LABS: #Lymphocytes 1.7 thou/uL (1.20-3.40); #Monocytes 0.3 thou/uL (0.11-0.59); #Neutrophils 4.8 thou/uL (1.40-6.50); %Basophils 0.5 % (0.0-1.0); %Eosinophils 0.4 % (0.0-10.0); %Monocytes 3.7 % (0.0-10.0); %Neutrophils 70.3 % (42.0-75.0); Hemoglobin 15.5 g/dL (14.0-18.0); Mean Corpuscular HGB CONC 33.5 g/dL (32.0-36.0); Mean Corpuscular Hemoglobin 31.3 pg (27.0-31.0); Mean Corpuscular Volume 93.5 fl (78.0-98.0); Mean Platelet Volume 6.8 fL (7.4-10.4); Platelet Count 360 10x3/uL (130-400); RBC Distribution Width 11.8 % (11.5-14.5); Red Blood Cell (RBC) Count 4.96 mill/uL (4.70-6.10); White Blood Cell (WBC) Count 6.8 10x3/uL (4.8-10.8)
[2022-11-10 10:02] LABS: ALT (SGPT) 24 U/L (8-55); AST (SGOT) 17 U/L (5-34); Albumin 5.2 g/dL (3.5-5.0); Alkaline Phosphatase 88 U/L (40-110); Anion Gap 15 mmol/L (10-20); BUN (Urea Nitrogen) 17 mg/dL (8.9-20.6); Bilirubin, Total 1.7 mg/dL (0.2-1.2); Calc. Creatinine Clearance 0 mL/min (70-130); Calcium 10.3 mg/dL (7.8-10.44); Carbon Dioxide 24 mmol/L (22-29); Chloride 103 mmol/L (98-107); Estimated GFR 116; Globulin 3.4 g/dL (2.4-3.5); Glucose 80 mg/dL (70-105); Potassium 4.4 mmol/L (3.5-5.1); Protein, Total 8.6 g/dL (6.0-8.3); Sodium 138 mmol/L (136-145)
[2022-11-10 10:24] LABS: Bilirubin Negative (Negative); Blood, Urine Negative (Negative); Clarity Clear (Clear); Glucose, Urine (Dipstick) Normal (Negative); Ketone, Urine Trace mg/dL (Negative); Leukocyte Negative Leu/uL (Negative); Nitrite Negative (Negative); Protein, Urine (Dipstick) 20 mg/dL (Neg-Trace); Specific Gravity, Urine 1.032 (1.002-1.036); Urobilinogen Normal mg/dL (Less than 2)
[2022-11-10] MEDS ORDERED: Dicyclomine 20 MG/2 ML VIAL ONE (12:57)
== END 2022-11-10 13:09 | disposition home or self-care (01) ==
LOC: ERS 08:39
DX: R10.811 Right upper quadrant abdominal tenderness (principal); F17.290 Nicotine dependence, other tobacco product, uncomplicated
CPT/HCPCS: 36415; 74177; 80053; 81003; 85025; 96372

== ENCOUNTER 2024-04-25 09:09 | Emergency (ER) | payer SELFPAY ==
[2024-04-25] MEDS ORDERED: Ketorolac Tromethamine 30 MG (1 mL) VIAL ONE (09:31)
== END 2024-04-25 09:40 | disposition home or self-care (01) ==
LOC: ERS 09:09
DX: K08.89 Other specified disorders of teeth and supporting structures (principal); F17.290 Nicotine dependence, other tobacco product, uncomplicated
CPT/HCPCS: 96372; J1885

== ENCOUNTER 2024-04-25 16:28 | Emergency (ER) | payer SELFPAY ==
[2024-04-25] MEDS ORDERED: Lidocaine 1% w/Epinephrine 1:100K 20 ML VIAL ONE (16:44)
[2024-04-25] MEDS ORDERED: Bupivacaine 0.25% 10 ML VIAL ONE (16:44)
== END 2024-04-25 18:16 | disposition home or self-care (01) ==
LOC: ERS 16:28
DX: K03.81 Cracked tooth (principal); K08.89 Other specified disorders of teeth and supporting structures; F17.290 Nicotine dependence, other tobacco product, uncomplicated
CPT/HCPCS: 64400; J0665

== ENCOUNTER 2024-09-15 13:42 | Emergency (ER) | payer SELFPAY | END 2024-09-15 15:07 | disposition left against medical advice (07) | LOC: ERS 13:42 | DX: Z53.21 Procedure and treatment not carried out due to patient leaving prior to being seen by health care provider (principal) ==